=== PATIENT | male | born 1970 | race Caucasian/White ===

== ENCOUNTER 2016-07-09 05:28 | Emergency (ER) | payer SELFPAY ==
[~2016-07-09] VITALS: Ht 170.2 cm; Wt 61.4 kg
[~2016-07-09 05:28] MED LIST: CEPHALEXIN500 MG PO; LORTAB 10-325 M1 TAB PO; NAPROSYN500 MG PO; ROBITUSSIN AC10 ML PO
[2016-07-09 07:09] LABS: HEMATOCRIT 35.5 % (39.0-50.0); IMMATURE GRANULOCYTES 0.4 % (0.0-1.0); MEAN CELL VOLUME 89.6 fL CALC (80.0-100.0); MEAN CORPUSCULAR HGB 30.3 pG CALC (26.0-32.0); MEAN CORPUSCULAR HGB CONC 33.8 g/L CALC (32.0-36.0); NEUT# 5.76 thou/uL (1.82-7.42); RED BLOOD COUNT 3.96 mill/uL (4.70-6.10); RED CELL DISTRI WIDTH 12.7 % (11.5-15.5)
[2016-07-09 07:31] LABS: ALBUMIN 4.2 g/dL (3.2-5.0); ALKALINE PHOSPHATASE 91 u/l (38-126); ANION GAP 13 (6-22 (CALC)); BILIRUBIN, TOTAL 0.4 mg/dL (0.0-1.4); BUN 20 mg/dL (9-20); BUN/CREATININE RATIO 22 (12-20 (CALC)); CALCIUM 9.1 mg/dL (8.4-10.2); CARBON DIOXIDE 28 mmol/l (22-30); CHLORIDE 103 mmol/l (95-108); CREATININE 0.9 mg/dL (0.7-1.3); GFR > 60 ML/MIN (>=60 (CALC)); GFR FOR AFR.AMER. > 60 ML/MIN (>=60 (CALC)); GLUCOSE 103 mg/dL (75-110); POTASSIUM 3.9 mmol/l (3.5-5.1); SGOT/AST 25 u/l (17-59); SGPT/ALT 41 u/l (21-72); SODIUM 140 mmol/l (137-146); TOTAL PROTEIN 7.7 g/dL (6.3-8.2)
[2016-07-09 08:39] VITALS: BP 130/93
[2016-07-09] MEDS ORDERED: NORCO1 TA1 PO (08:41)
[2016-07-09] MEDS ORDERED: BACTRIM DS1 TAB PO (08:41)
== END 2016-07-09 08:52 | disposition home or self-care (01) | DRG 603 ==
LOC: ED 05:28
PROVIDERS: Emergency Medicine
PROC: 0H9GXZZ Drainage of Left Hand Skin, External Approach (ICD-10-PCS; principal; 2016-07-09)
DX: L02.414 Cutaneous abscess of left upper limb (principal); B95.62 Methicillin resistant Staphylococcus aureus infection as the cause of diseases classified elsewhere

== ENCOUNTER 2018-07-11 12:58 | Emergency (ER) | payer SELFPAY ==
[~2018-07-11] VITALS: Ht 170.2 cm; Wt 65.0 kg
[~2018-07-11 12:58] MED LIST changes: +BACTRIM DS1 TAB PO; +NORCO1 TA1 PO
[2018-07-11 13:46] LABS: HEMATOCRIT 35.1 % (39.0-50.0); HEMOGLOBIN 11.6 g/dl (14.0-18.0); IMMATURE GRANULOCYTES 0.6 % (0.0-5.0); MEAN CELL VOLUME 89.3 fL CALC (80.0-100.0); MEAN CORPUSCULAR HGB 29.5 pG CALC (26.0-32.0); NEUT# 6.93 thou/uL (1.82-7.42); RED BLOOD COUNT 3.93 mill/uL (4.70-6.10); RED CELL DISTRI WIDTH 12.7 % (11.5-15.5)
[2018-07-11 14:44] LABS: ANION GAP 14 (6-22 (CALC)); BUN 17 mg/dL (9-20); BUN/CREATININE RATIO 17 (12-20 (CALC)); CARBON DIOXIDE 26 mmol/l (22-30); CHLORIDE 99 mmol/l (95-108); ETHYL ALCOHOL 0 mg/dl (0-30); GFR > 60 ML/MIN (>=60 (CALC)); GFR FOR AFR.AMER. > 60 ML/MIN (>=60 (CALC)); POTASSIUM 3.7 mmol/l (3.5-5.1); SODIUM 136 mmol/l (137-146)
[2018-07-11 15:15] LABS: TSH, 3RD GENERATION 1.37 uIU/mL (0.47 - 4.68)
[2018-07-11 15:27] VITALS: BP 114/73
== END 2018-07-11 15:27 | disposition home or self-care (01) | DRG 313 ==
LOC: ED 12:58
PROVIDERS: Family Medicine
DX: R07.9 Chest pain, unspecified (principal); Z91.19 Patient's noncompliance with other medical treatment and regimen; R06.02 Shortness of breath; R94.31 Abnormal electrocardiogram [ECG] [EKG]; R06.2 Wheezing
CPT/HCPCS: J0153